=== PATIENT | male | born 1975 | race Caucasian/White ===

== ENCOUNTER 2019-01-13 12:09 | Emergency (ER) | payer OTHER ==
[~2019-01-13] VITALS: Ht 188 cm; Wt 95.3 kg
[2019-01-13] MEDS ORDERED: OMEPRAZOLE20 MG PO (16:16)
[2019-01-13] MEDS ORDERED: ZANTAC 7575 MG PO (16:16)
== END 2019-01-13 16:30 | disposition home or self-care (01) ==
LOC: ER 12:09
DX: K52.9 Noninfective gastroenteritis and colitis, unspecified (principal); R10.13 Epigastric pain